=== PATIENT | male | born 1960 | race Caucasian/White ===

== ENCOUNTER → 2018-11-02 | Outpatient (REF) ==
--- NOTE | 2018-11-02 19:04 | REP ---
Clinical: Pain and disability. Technique: AP, lateral, coned-down views of the lumbosacral spine. Findings: Alignment and lordosis maintained. No acute fracture / compression injury or subluxation. Advanced degenerative disc osteophyte complex at the L3-4 level includes endplate sclerosis, marginal spurring and disc space narrowing. Moderate multilevel degenerative changes suggested throughout the remainder of the visualized thoracolumbar spine. Impression: Moderate/advanced degenerative changes. Electronically Signed by Darwin Gallegos MD 11/02/2018 06:56 P
== END ==
LOC: M SMT 10:12
PROVIDERS: ATTEND Internal Medicine
DX: Z00.00 Encounter for general adult medical examination without abnormal findings (principal)